=== PATIENT | female | born 1990 | race American Indian/Alaskan Native ===

== ENCOUNTER 2019-06-17 17:03 | Emergency (ER) | payer SELFPAY ==
--- NOTE | 2019-06-17 18:18 | Emergency Department Report ---
Blank Doc - Documentation Documentation: This is a 29-year-old female that presents with vaginal bleeding x2 months. This initial assessment/diagnostic orders/clinical plan/treatment(s) is/are subject to change based on patient's health status, clinical progression and re- assessment by fellow clinical providers in the ED. Further treatment and workup at subsequent clinical providers discretion. Patient/guardians urged not to elope from the ED as their condition may be serious if not clinically assessed and managed. Initial orders include: 1- Patient sent to [facility] for further evaluation and treatment 2- UA 3- labs
[2019-06-17 18:20] VITALS: BP 135/91
[2019-06-17 19:05] LABS: Basophils # (Auto) 0.1 K/mm3 (0.0-0.1); Basophils % (Auto) 0.8 % (0.0-1.8); Eosinophils # (Auto) 0.1 K/mm3 (0.0-0.4); Hematocrit 38.9 % (30.3-42.9); Hemoglobin 12.5 gm/dl (10.1-14.3); Lymphocytes # (Auto) 2.7 K/mm3 (1.2-5.4); Mean Corpuscular HGB Conc 32 % (30-34); Mean Corpuscular Volume 77 fl (79-97); Monocytes # (Auto) 0.5 K/mm3 (0.0-0.8); Monocytes % (Auto) 7.2 % (0.0-7.3); Platelet Count 197 K/mm3 (140-440); Red Blood Count 5.03 M/mm3 (3.65-5.03); Red Cell Distribution Width 15.4 % (13.2-15.2)
[2019-06-17 19:09] LABS: Bacteria,Urine 1+ /HPF (Negative); Bilirubin,Urine NEG (Negative); Blood,Urine LG (Negative); Color,Urine Yellow (Yellow); Mucus,Urine 1+ /HPF; Protein,Urine <15 mg/dL mg/dL (Negative)
[2019-06-17 19:13] LABS: HCG Qualitative,Urine Negative (Negative)
--- NOTE | 2019-06-17 20:10 | Emergency Department Report ---
ED Female HPI - General Chief complaint: Vaginal Bleeding Stated complaint: PROLONGED CYCLE 2MOS Time Seen by Provider: 06/17/19 18:16 Source: patient Mode of arrival: Ambulatory Limitations: No Limitations - History of Present Illness Initial comments: Patient is a nulliparous 29-year-old [place] female with no past medical history who presents to the ED with persistent heavy vaginal bleeding for the last 3 months. Patient states that she had a similar experience 4 years ago and had to take medroxyprogesterone which eventually stopped. Patient states that she is not been on any control ever since she stopped taking medroxyprogesterone. Patient denies abdominal pain, dysuria, urinary frequency and urgency, vaginal discharge, low back pain, dizziness, fever, chills, cough, change in vision, syncope or chest pain and shortness of breath. MD Complaint: vaginal bleeding -: Gradual, month(s) (3) Location: other (Vaginal) Radiation: non-radiating Severity: moderate Severity scale (0 -10): 4 Quality: cramping, dull Consistency: constant Improves with: none Worsens with: menstrual period Are you Now?: No Last Menstrual Period: 04/02/19 EDC: 01/07/20 Associated Symptoms: denies other symptoms, vaginal bleeding. denies: vaginal discharge, abdominal pain, nausea/vomiting, fever/chills, headaches, loss of appetite, dysuria, hematuria, seizure, shortness of breath, syncope, other - Related Data Sexually active: Yes : 0 Para: 0 A: 0 Previous Rx's Medication Instructions Recorded Last Taken Type medroxyPROGESTERone ACETATE 10 mg PO DAILY #14 tablet 06/17/19 Unknown Rx [Provera] ED Review of Systems ROS: Stated complaint: PROLONGED CYCLE 2MOS Other details as noted in HPI Constitutional: denies: chills, fever Eyes: denies: eye pain, eye discharge, vision change ENT: denies: ear pain, throat pain Respiratory: denies: cough, shortness of breath, wheezing Cardiovascular: denies: chest pain, palpitations Endocrine: no symptoms reported Gastrointestinal: denies: abdominal pain, nausea, vomiting, diarrhea, hematemesis, melena Genitourinary: abnormal menses (Heavy vaginal bleeding). denies: urgency, dysuria, discharge Musculoskeletal: denies: back pain, joint swelling, arthralgia Skin: denies: rash, lesions Neurological: denies: headache, weakness, paresthesias Psychiatric: denies: anxiety, depression Hematological/Lymphatic: denies: easy bleeding, easy bruising ED Past Medical Hx - Past Medical History Previous Medical History?: Yes Hx Hypertension: No Hx CVA: No Hx Heart Attack/AMI: No Hx Congestive Heart Failure: No Hx Diabetes: No Hx Deep Vein Thrombosis: No Hx Pulmonary Embolism: No Hx GERD: No Hx Liver Disease: No Hx Renal Disease: No Hx of Cancer: No Hx Sickle Cell Disease: No Hx Arthritis: No Hx Headaches / Migraines: No Hx Seizures: No Hx Kidney Stones: No Hx Psychiatric Treatment: No Hx Asthma: No Hx COPD: No Hx Tuberculosis: No Hx Dementia: No Hx HIV: No Additional medical history: endometriosis - Surgical History Past Surgical History?: No Hx Coronary Stent: No Hx Open Heart Surgery: No Hx Pacemaker: No Hx Internal Defibrillator: No Hx Cholecystectomy: No Hx Appendectomy: No Hx Breast Surgery: No - Social History Smoking Status: Current Some Day Smoker Substance Use Type: None - Medications Home Medications: Home Medications Medication Instructions Recorded Confirmed Last Taken Type medroxyPROGESTERone ACETATE 10 mg PO DAILY #14 tablet 06/17/19 Unknown Rx [Provera] ED Physical Exam - General Limitations: No Limitations General appearance: alert, in no apparent distress - Head Head exam: Present: atraumatic, normocephalic, normal inspection - Eye Eye exam: Present: normal appearance, PERRL, EOMI Pupils: Present: normal accommodation - ENT ENT exam: Present: normal exam, normal orophraynx, mucous membranes moist, TM's normal bilaterally, normal external ear exam - Neck Neck exam: Present: normal inspection, full ROM. Absent: tenderness, m eningismus, lymphadenopathy - Respiratory Respiratory exam: Present: normal lung sounds bilaterally. Absent: respiratory distress, wheezes, rales, rhonchi, chest wall tenderness, accessory muscle use, prolonged expiratory - Cardiovascular Cardiovascular Exam: Present: regular rate, normal rhythm, normal heart sounds. Absent: systolic murmur, diastolic murmur, rubs, gallop - GI/Abdominal GI/Abdominal exam: Present: soft, normal bowel sounds. Absent: tenderness, guarding, rebound, hyperactive bowel sounds, organomegaly - Bi-manual exam: Present: other (Deferred, patient preference) - Extremities Exam Extremities exam: Present: normal inspection, full ROM, normal capillary refill - Back Exam Back exam: Present: normal inspection, full ROM. Absent: tenderness, CVA tenderness (R), CVA tenderness (L), muscle spasm, paraspinal tenderness - Neurological Exam Neurological exam: Present: alert, oriented X3, CN II-XII intact, normal gait, reflexes normal - Psychiatric Psychiatric exam: Present: normal affect, normal mood - Skin Skin exam: Present: warm, dry, intact, normal color. Absent: rash ED Course Vital Signs 06/17/19 18:17 Temperature 98.0 F Pulse Rate 68 Respiratory 16 Rate Blood Pressure 135/91 Blood Pressure 135/91 [Right] O2 Sat by Pulse 98 Oximetry - Reevaluation(s) Reevaluation #1: 06/17/19 20:08 This is a 29-year-old female who presented to the ED with persistent heavy vaginal bleeding for the last 3 months. In the ED, patient is alert and oriented 3 and is not in distress with normal vital signs. Lab test results were reviewed and are all nonactionable. Patient's symptoms are likely due to dysfunctional uterine bleeding, and was discharged home on a medroxyprogesterone taken daily, and patient was advised to follow-up at the [facility] for further evaluation and possible constipation off being on control to regulate her menstrual cycle. Patient agreed with this proposal and promised to follow up with the [facility] in the next 5-7 days. Patient is advised to return to the ED immediately if symptoms get worse. ED Medical Decision Making - Lab Data Result diagrams: 06/17/19 18:53 - Medical Decision Making This is a 29-year-old female who presented to the ED with persistent heavy vaginal bleeding for the last 3 months. In the ED, patient is alert and oriented 3 and is not in distress with normal vital signs. Lab test results were reviewed and are all nonactionable. Patient has no abdominal pain or pelvic pain, dysuria or syncope and generalized weakness, and is hemodynamically stable. Patient's symptoms are likely due to dysfunctional uterine bleeding, and was discharged home on a medroxyprogesterone taken daily, and patient was advised to follow-up at the [facility] for further evaluation and possible constipation off being on control to regulate her menstrual cycle. Patient agreed with this proposal and promised to follow up with the [facility] in the next 5-7 days. Patient is advised to return to the ED immediately if symptoms get worse. - Differential Diagnosis Dysfunctional uterine bleeding; menometrorrhagia; dysmenorrhea Critical care attestation.: If time is entered above; I have spent that time in minutes in the direct care of this critically ill patient, excluding procedure time. ED Disposition Clinical Impression: Menometrorrhagia, Dysfunctional uterine hemorrhage Disposition: TO HOME OR SELFCARE Is pt being admited?: No Does the pt Need Aspirin: No Condition: Stable Instructions: Dysfunctional Uterine Bleeding (ED), Menorrhagia (ED) Additional Instructions: Take medications with food, drink plenty of fluids and follow up with your primary care physician or [facility] in 5-7 days for reevaluation. Consider being on control to help regulate your menstrual cycle. Return to the ED immediately if symptoms worse. Prescriptions: medroxyPROGESTERone ACETATE [Provera] 10 mg PO DAILY #14 tablet Referrals: [facility] Depart [Outside] - 3-5 Days Time of Disposition: 20:14 Print Language: FAROESE
== END 2019-06-17 20:30 | disposition home or self-care (01) ==
LOC: ED 17:03
DX: N92.1 Excessive and frequent menstruation with irregular cycle (principal); N93.8 Other specified abnormal uterine and vaginal bleeding; F17.200 Nicotine dependence, unspecified, uncomplicated
CPT/HCPCS: 36415; 81001; 81025; 85025